=== PATIENT | female | born 1985 | race Caucasian/White ===

== ENCOUNTER → 2017-12-14 | Day surgery (SDC) | payer MEDICAID ==
[~2017-12-14] VITALS: Ht 160 cm; Wt 75.8 kg
[~2017-12-14] MED LIST: *MEPERIDINE 25 MG INJ VIAL PERIprocedural Use ONLY ONE; CEPH-459 PO; CHLORHEXIDINE GLUCONATE 2 % 1 PACK (2 CLOTHS) TOPICAL PRN; DEXAMETHASONE SOD PHOS 4 MG/ML VIAL IV ONE; DO NOT ADM ANY ANTICOAGULANT DRUGS PRN; FUROSEMIDE 40 MG/4 ML VIAL ONE; GENTAMICIN SULFATE 80 MG/2 ML VIAL ONE; INSULIN HUMAN REGULAR 1,000 UNITS/10 ML VIAL SQ PRN; LACTATED RINGER'S 1000 ML IV PRN; LIDOCAINE HCL 1% PF 5 ML SYRINGE OTHER ONE; METHYLENE BLUE 10 MG/ML VIAL ONE; METOPROLOL TARTRATE 25 MG TAB PO PRN; ONDANSETRON HCL 4 MG/2 ML VIAL IV PUSH ONE; ONDANSETRON ODT 4 MG TAB PO PRN; PERC5TAB12 PO; POVIDONE IODINE 5% (ANTISEPSIS KIT) 4 APPLICATIONS EACH NARE PRN; PROPOFOL 200 MG/20 ML AMP IV ONE; SODIUM CHLORID 0.9% 500 ML IV PRN; TAMS0.4C4 PO; ceFAZolin 1,000 MG/NS 100 ML IV SCH; oxyCODONE/ACETAMINOPHEN 5 MG/325 MG TAB PO PRN
[2017-12-14 06:53] LABS: AUTOMATED NEUTROPHIL # 3.3 TH/MM3 (1.8-7.7); BASOPHIL % 0.8 % (0.0-2.0); EOSINOPHIL % 0.6 % (0.0-4.0); HEMATOCRIT 37.5 % (35.0-46.0); LYMPH % 30.2 % (9.0-44.0); LYMPHOCYTE # 1.6 TH/MM3 (1.0-4.8); MEAN CELL VOLUME 83.9 FL (80.0-100.0); MEAN CORPUSCULAR HEMOGLOBIN 29.1 PG (27.0-34.0); MEAN CORPUSCULAR HGB CONC 34.7 % (32.0-36.0); MEAN PLATELET VOLUME 7.6 FL (7.0-11.0); MONO % 6.6 % (0.0-8.0); MONOCYTE # 0.4 TH/MM3 (0-0.9); NEUT % 61.8 % (16.0-70.0); PLATELET COUNT 207 TH/MM3 (150-450); RED BLOOD COUNT 4.47 MIL/MM3 (4.00-5.30); RED CELL DISTRIBUTION WIDTH 12.9 % (11.6-17.2); WHITE BLOOD COUNT 5.3 TH/MM3 (4.0-11.0)
--- NOTE | 2017-12-14 10:28 | PD.OP ---
Operative Report Date of Surgery: December 14, 2017 Preoperative Diagnosis: (1) Ureteral calculus, right (2) Ureterocele, acquired Postoperative Diagnosis: (1) Ureteral calculus, right (2) Ureterocele, acquired Procedure: Cystoscopy, right retrograde pyelogram, endoscopic unroofing of right ureterocele, right ureteroscopy with laser lithotripsy and right ureteral stent placement. Anesthesia: General Surgeon: Scotty Cueto Ski Patroller(s): None Operation and Findings: Indication for procedures: Case of a pleasant 32-year-old female with right flank pain. 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 Patient presents today for cystoscopy, right retrograde pyelogram and right ureteroscopy with laser lithotripsy. Operative procedure in detail: Patient was brought to the operating room suite and placed supine on the OR table. She was then placed under general anesthesia. After an appropriate timeout was undertaken I proceeded with cystoscopic evaluation utilizing the rigid cystoscope with the 20 [place] sheath and both the 30 and 70 lenses. The patient was noted to have a left ureteral orifice in normal position effluxing clear urine. On the right side there was a single orifice identified and adjacent to this was a ureterocele. There was clear drainage of urine noted from the right orifice. I then proceeded with performing a right retrograde pyelogram study and there was prompt filling and drainage of the collecting system on the right side. I then carefully probed the bulge involving the right trigone and search for the secondary right ureteral orifice with a sensor 0.035 wire and I was able to identify the secondary orifice. The wire was then advanced up into the right kidney and a 6 [place] open-ended catheter was advanced over the wire, the wire withdrawn and a right retrograde pyelogram was once again repeated. It became apparent that this was the ureter that had the stone and it was draining the upper pole of the right kidney. Leaving the open-ended catheter in place I then used endoscopic scissors and opened up the ureterocele with sharp dissection. I then fulgurated the area with the [place] electrode. The open-ended catheter was then withdrawn leaving the wire in place which was secured to a sterile drape with hemostat. The cystoscope was withdrawn and I utilize the self dilating ureteroscope to proceed with ureteroscopic evaluation. I was able to easily advance the ureteroscope with the addition of a intraluminal sensor wire placed via the scope up to the point of the obstructing calculus. The stone appeared to be partially eroding into the ureteral wall and I was able to gently manipulate the stone in a cephalad direction using the ureteroscope along with the wire. The wire was then withdrawn and exchanged for a 200 m holmium laser fiber and I proceeded with laser lithotripsy of the stone. A couple of the larger stone fragments were subsequently retrieved under direct vision with a 2.4 [place] stone basket and sent off for chemical analysis. I then once again exchanged the ureteroscope for the cystoscope and backloaded the previously inserted wire. The 6 [place] open-ended catheter was was once again utilized and advanced over the wire and the wire withdrawn. A right retrograde Polygram study was once again performed and there was prompt filling and drainage of the collecting system noted. I then exchanged the open-ended catheter for a 6 [place] 26 cm [place] long-term double-J stent. The stent was placed on the both cystoscopic and fluoroscopic guidance without difficulty. The cystoscope was then withdrawn and a 16 [place] 10 cc Liu catheter was placed and connected to gravity drainage. The patient tolerated the procedures without complications and was transferred to the PACU in satisfactory condition. Scotty Cueto MD December 14, 2017 10:28
[2017-12-14 12:00] VITALS: BP 113/64; PULSE 72; RESP 20; TEMP 97; O2SAT 100
== END | disposition home or self-care (01) ==
LOC: HSDC 05:26
PROVIDERS: ATTEND Urology
DX: N20.1 Calculus of ureter (principal); N28.89 Other specified disorders of kidney and ureter; E78.5 Hyperlipidemia, unspecified
CPT/HCPCS: 00918; 52300; 52356; 74420; 82365; 82370; 85025; 88300; C1726; C1769; J0690; J1100; J1580; J1940; J2175; J2405; J3010; J7120